=== PATIENT | male | born 1965 | race African-American/Black ===

== ENCOUNTER 2020-09-07 19:46 | Inpatient (IN) | payer SELFPAY ==
--- NOTE | 2020-09-07 20:36 | RAD ---
CHEST ONE VIEW: 09/07/20 HISTORY: Dyspnea. Heart size appears slightly enlarged. Mediastinal structures are unremarkable. The lungs are clear of infiltrates. No signs of failure. IMPRESSION: Mild cardiomegaly. POS: ANDREA
[2020-09-07 21:01] LABS: Hemoglobin 12.9 g/dL (14.0-18.0); Mean Corpuscular HGB CONC 31.5 g/dL (32.0-36.0); Mean Corpuscular Hemoglobin 29.9 pg (27.0-31.0); Mean Corpuscular Volume 94.9 fL (78.0-98.0); Platelet Count 201 thou/uL (130-400); RBC Distribution Width 14.6 % (11.5-14.5); White Blood Cell (WBC) Count 6.7 thou/uL (4.8-10.8)
[2020-09-07 21:03] LABS: ALT (SGPT) 28 U/L (8-55); AST (SGOT) 57 U/L (5-34); Albumin 3.5 g/dL (3.5-5.0); Alkaline Phosphatase 220 U/L (40-110); Anion Gap 18 mmol/L (10-20); BUN (Urea Nitrogen) 10 mg/dL (8.4-25.7); Bilirubin, Total 0.6 mg/dL (0.2-1.2); Calc. Creatinine Clearance 0 mL/min (70-130); Calcium 8.2 mg/dL (7.8-10.44); Carbon Dioxide 22 mmol/L (22-29); Chloride 107 mmol/L (98-107); Globulin 3.2 g/dL (2.4-3.5); Glucose 103 mg/dL (70-105); Potassium 3.5 mmol/L (3.5-5.1); Protein, Total 6.7 g/dL (6.0-8.3); Sodium 143 mmol/L (136-145)
[2020-09-07 21:26] LABS: CKMB 1.8 ng/mL (0-6.6)
[2020-09-07 21:35] LABS: Band 1 % (5-11); Eosinophils 1 % (0-10); Lymphocytes 30 % (21-51); MDiff Complete? YES; Monocytes 17 % (0-10); Neutrophil 49 % (42-75)
--- NOTE | 2020-09-07 21:58 | PDOC.BPN ---
- Brief Progress Note [id number] dictated
[2020-09-07] MEDS ORDERED: Enoxaparin Sodium 80 MG/0.8 ML SYRINGE ONE (22:45)
[2020-09-08 00:06] VITALS: BMI 26.6
[2020-09-08 00:07] LABS: Troponin I 0.224 ng/mL (< 0.028)
--- NOTE | 2020-09-08 00:46 | HP ---
CHIEF COMPLAINT: Leg swelling. HISTORY OF PRESENT ILLNESS: Mr. Fuentes is a 54-year-old male who is being transferred from [facility] after he presented with leg swelling. The patient has past medical history of hypertension, cigarette smoker. He states that he had an insect bite on the right inner thigh. He said he went to a doctor at [facility] who noticed swelling in his feet and sent him to the hospital to get checked out. He was found to have elevated BNP of 1386. He had elevated D-dimer of 3.81 and elevated troponin of 0.224. He denies any chest pain, but he describes that he gets winded with any minimal exertion and he gets orthopneic, and he noticed his right leg swollen, then his both legs became swollen. In the emergency room, on imaging studies, the patient was found to have bilateral effusions. Elevated BNP. The patient was given IV Lasix. Workup in our emergency room, the patient's leg swelling improved. Repeat troponin is 0.25. The patient still denies any chest pain. The patient was given 1 dose of 1 mg/kg of Lovenox. The patient's EKG showed LVH with T wave inversions in V4, V5, V6. The patient is being admitted to the hospital for further management. PAST MEDICAL HISTORY: Hypertension. PAST SURGICAL HISTORY: Colostomy after . SOCIAL HISTORY: He is an everyday smoker. He smokes half pack a day. He drinks about 5 drinks per day. FAMILY HISTORY: Noncontributory. HOME MEDICATIONS: See home medication reconciliation form for updated medications. ALLERGIES: ALLERGIC TO LISINOPRIL. REVIEW OF SYSTEMS: Review of 14 systems negative except what is mentioned in history of present illness. PHYSICAL EXAMINATION: GENERAL: The patient is awake, alert, orthopneic. VITAL SIGNS: Blood pressure 132/89, pulse is 110, respiratory rate is 22, temperature 98.1, oxygen saturation is 100%. HEAD AND NECK: Normocephalic, atraumatic. NECK: Supple. CHEST: Decreased air entry in both bases. HEART: S1, S2. Regular, tachycardic. ABDOMEN: Soft, nontender. Bowel sounds present. NEUROLOGIC: Awake, alert, oriented. Moving extremities. PSYCH: Unable to assess. EXTREMITIES: 3+ bilateral edema. LABORATORY DATA: WBC 6.7, hemoglobin 12.9, platelets 201. Troponin 0.25. BNP 1287. Sodium 143, potassium 3.5, BUN 10, creatinine 0.7. ASSESSMENT AND PLAN: 1. Acute congestive heart failure. 2. Elevated troponin/? [id number] elevation myocardial infarction. 3. Hypertension. 4. Cigarette smoker. PLAN: 1. Admit. 2. Telemetry monitoring. 3. Aspirin. 4. The patient was started on anticoagulation in the ED, reassess in a.m. 5. We will continue to trend troponins. 6. IV diuresis. 7. Monitor kidney function and urine output. 8. 2D echo. 9. Consult Cardiology in a.m. for evaluation and further recommendations. 10. DVT prophylaxis. The patient is on Lovenox. 11. Expected length of stay at least 1 midnight if patient is stable and cleared by Cardiology. Job ID: [id number]
[2020-09-08] MEDS: Acetaminophen 325 MG TAB PO PRN (04:36)
[2020-09-08 04:47] LABS: Anion Gap 19 mmol/L (10-20); BUN (Urea Nitrogen) 12 mg/dL (8.4-25.7); Calc. Creatinine Clearance 116 mL/min (70-130); Calcium 8.9 mg/dL (7.8-10.44); Carbon Dioxide 23 mmol/L (22-29); Chloride 105 mmol/L (98-107); Glucose 105 mg/dL (70-105); Potassium 3.5 mmol/L (3.5-5.1); Sodium 143 mmol/L (136-145)
[2020-09-08 04:48] LABS: Troponin I 0.209 ng/mL (< 0.028)
[2020-09-08 05:58] LABS: Band 2 % (5-11); Eosinophils 2 % (0-10); Hemoglobin 13.2 g/dL (14.0-18.0); Lymphocytes 38 % (21-51); MDiff Complete? YES; Mean Corpuscular HGB CONC 32.4 g/dL (32.0-36.0); Mean Corpuscular Hemoglobin 30.9 pg (27.0-31.0); Mean Corpuscular Volume 95.2 fL (78.0-98.0); Mean Platelet Volume 9.4 fL (7.4-10.4); Monocytes 16 % (0-10); Neutrophil 42 % (42-75); Platelet Count 189 thou/uL (130-400); RBC Distribution Width 14.6 % (11.5-14.5); Red Blood Cell (RBC) Count 4.28 mill/uL (4.70-6.10); White Blood Cell (WBC) Count 6.1 thou/uL (4.8-10.8)
[2020-09-08] MEDS ORDERED: Potassium Chloride 20 MEQ TAB PO SCH (06:00)
[2020-09-08] MEDS: Furosemide 40 MG/4 ML VIAL SLOW IVP SCH ×2 (06:36→15:00)
[2020-09-08] MEDS ORDERED: Magnesium Sulfate 4 GM in Sodium Chloride 0.9% 250 ML 250 ML IVPB SCH (07:30)
[2020-09-08] MEDS ORDERED: Aspirin 325 MG TAB PO SCH (09:00)
[2020-09-08] MEDS ORDERED: FLU VACC QS2020-21(6MOS UP)/PF 60 MCG/0.5 ML SYRINGE IM ONE (09:00)
[2020-09-08] MEDS: Enoxaparin Sodium 80 MG/0.8 ML SYRINGE SC SCH ×2 (11:26→20:59)
[2020-09-08] MEDS ORDERED: Spironolactone 25 MG TAB PO SCH (11:45)
[2020-09-08] MEDS ORDERED: Furosemide 40 MG/4 ML VIAL ONE (16:08)
--- NOTE | 2020-09-08 17:27 | PDOC.HOSPP ---
- Subjective Subjective: sob better. still swollen. d/w cardiology - Objective Vital Signs & Weight: Vital Signs (12 hours) Temp Pulse Resp BP BP Pulse Ox 09/08/20 16:15 108 H 16 139/80 100 09/08/20 12:19 97.4 F L 106 H 18 152/98 H 98 09/08/20 07:54 97.3 F L 106 H 18 131/97 H 99 Weight Weight 175 lb 6 oz I&O: 09/07/20 09/08/20 09/09/20 06:59 06:59 06:59 Intake Total 120 Output Total 600 Balance -480 Result Diagrams: 09/08/20 04:13 09/08/20 04:13 Radiology Reviewed by me: Yes EKG Reviewed by me: Yes Hospitalist ROS - Medication Medications: Active Medications Generic Name Dose Route Start Last Admin Trade Name Freq PRN Reason Stop Dose Admin Acetaminophen 650 mg 09/07/20 21:21 09/08/20 04:36 Acetaminophen 325 Mg Tab PO 650 mg Q4H PRN Administration Headache/Fever/Mild Pain (1-3) Enoxaparin Sodium 80 mg 09/08/20 09:00 09/08/20 11:26 Enoxaparin Sodium 80 Mg/0.8 Ml Syringe SC 80 mg 0900,2100 HUE Administration Furosemide 40 mg 09/08/20 06:00 09/08/20 06:36 Furosemide 40 Mg/4 Ml Vial SLOW IVP 40 mg 0600,1400 HUE Administration - Exam General Appearance: NAD Eye: PERRL ENT: normocephalic atraumatic Neck: supple Heart: RRR Respiratory: CTAB Gastrointestinal: soft, non-tender, non-distended Extremities: no cyanosis Skin: normal turgor Neurological: cranial nerve grossly intact Hosp A/P - Plan acute on chronic systolic HF with EF 15% --cont IV diuresis --follow renal function. Pt was placed on guideline directed therapy for HF by business intern. --will defer business intern for further ischemic workup --Nutrition consult for low salt diets. NSTEMI --cont med mgt, cardiology is following HTN --noncompliance with meds Medical noncompliance. Tobacco dep disorder
[2020-09-08] MEDS ORDERED: Sodium Chloride 0.9% 10 ML ONE (20:41)
[2020-09-09 05:20] LABS: Anion Gap 17 mmol/L (10-20); BUN (Urea Nitrogen) 14 mg/dL (8.4-25.7); Calc. Creatinine Clearance 125 mL/min (70-130); Calcium 8.3 mg/dL (7.8-10.44); Carbon Dioxide 24 mmol/L (22-29); Chloride 99 mmol/L (98-107); Glucose 102 mg/dL (70-105); Potassium 3.2 mmol/L (3.5-5.1); Sodium 137 mmol/L (136-145)
[2020-09-09 05:28] LABS: Troponin I 0.117 ng/mL (< 0.028)
[2020-09-09] MEDS ORDERED: Sodium Chloride 0.9% 10 ML ONE (05:34)
[2020-09-09] MEDS: Furosemide 40 MG/4 ML VIAL SLOW IVP SCH ×2 (06:25→14:09)
--- NOTE | 2020-09-09 07:19 | CON ---
DATE OF CONSULTATION: 09/08/2020 REASON FOR CONSULTATION: Congestive heart failure. HISTORY OF PRESENT ILLNESS: Mr. Fuentes is a 54-year-old man. He states he has been somewhat short of breath for a few weeks, but lately it has been noted that he has been having increasing swelling of his lower extremities. He feels short of breath when he tries to lie flat. He has not had any chest pain or pressure. He recently went to see his doctor because he had an insect bite on his right inner thigh. The doctor noticed he had swelling of his legs, sent him to the hospital, was found to have increased BNP and elevated troponin. He was found to have bilateral effusions. He was given intravenous Lasix and transferred here. No chest pain is mentioned. PAST MEDICAL HISTORY: Hypertension, but apparently not taking any medicines now. FAMILY HISTORY: Noncontributory. SOCIAL HISTORY: He said he does not have any family here. He is initially from the [facility]. He does continue to smoke half pack a day and drinks about 5 drinks per day according to the notes. ALLERGIES: ALLERGIC TO LISINOPRIL. HE ACTUALLY HAD THROAT SWELLING, SEVERE TROUBLE BREATHING, REQUIRED EPINEPHRINE TO RESOLVE, A TRUE LISINOPRIL ALLERGY. SEB INHIBITOR ALLERGY. REVIEW OF SYSTEMS: CONSTITUTIONAL: Continued to work. No generalized weakness. VISION: No changes. HEARING: No changes. PULMONARY: Positive for shortness of breath. CARDIAC: No chest pain. GASTROINTESTINAL: No nausea, vomiting, or diarrhea. SKIN: No rashes. NEUROLOGIC: No unilateral weakness or numbness. PSYCHIATRIC: No unusual depression or anxiety. PHYSICAL EXAMINATION: GENERAL: This is a pleasant gentleman. He is 54 years of age. Awake and alert, very cooperative. VITAL SIGNS: Blood pressure 139/97, pulse is 106, it is sinus tachycardia on the monitor. HEENT: Eyes, sclerae nonicteric. Mouth, mucous membranes moist. NECK: Supple. No lymphadenopathy. The neck veins are distended slightly, up at 45 degrees LUNGS: He does have some bibasilar rales. CARDIAC: Normal S1, normal S2, but he is tachycardic. I do hear an S3. There is also a soft apical systolic murmur. ABDOMEN: Soft and nontender. EXTREMITIES: Moderate to severe peripheral edema. The peripheral pulses are faint, even the femoral pulses I can palpate, but they are low amplitude. I do not feel pedal pulses. His feet are cool, but not cold. PERTINENT LABORATORY DATA: Potassium is 3.5, magnesium was low at 1.3. Troponin levels are flat at 0.2, essentially there is one 0.25, 0.209. BNP 2280. Echocardiogram, ejection fraction about 15%, severely dilated left ventricle, severely dilated left atrium, moderate mitral regurgitation, moderate to severe aortic insufficiency, moderate to severe tricuspid insufficiency, severe global hypokinesis. EKG, sinus rhythm with some diffuse T-wave changes. ASSESSMENT: 1. Probably severe cardiomyopathy, very advanced stage. 2. Unfortunately allergic to SEB inhibitor, true allergy with angioedema, requiring epinephrine. 3. Tachycardia and congestive heart failure, not compensated. 4. Hypomagnesemia. 5. Increased troponin level. I suspect this is probably chronic. This is a poor prognostic sign in patients with heart failure. Unfortunately, the patient's long-term prognosis is likely poor due to pump failure. He has very advanced systolic dysfunction. He cannot take SEB inhibitors. Unfortunately, the patient has no insurance; therefore, it would be very difficult to consider transplantation or other advanced heart failure treatment available in the medical centers. We will do the following; 1. Start spironolactone. 2. Continue diuretics. 3. Once volume status is better, add hydralazine and nitrates. 4. We will go ahead and draw another troponin level to make sure there is no peak and trough. This is probably chronically elevated finding. Unfortunately, long-term prognosis is poor in this unfortunate very pleasant gentleman. He has essentially not used any tobacco or alcohol. It is possible there is some alcohol related issue with a myopathy. If that is the case, he could get some improvement in left ventricular function with cessation of alcohol. Otherwise, the prognosis unfortunately appears very poor in this very pleasant unfortunate gentleman. We will follow with you during this hospitalization. Job ID: [id number]
[2020-09-09] MEDS ORDERED: Potassium Chloride 20 MEQ TAB PO SCH (08:00)
[2020-09-09] MEDS: Carvedilol 6.25 MG TAB PO SCH ×2 (09:17→14:09)
[2020-09-09] MEDS: Spironolactone 25 MG TAB PO SCH ×2 (09:18→16:59)
[2020-09-09] MEDS: Enoxaparin Sodium 80 MG/0.8 ML SYRINGE SC SCH (09:18)
[2020-09-09] MEDS: Aspirin Chewable 81 MG TAB PO SCH (09:18)
--- NOTE | 2020-09-09 13:28 | PRG ---
DATE OF SERVICE: 09/09/2020 SUBJECTIVE: Mr. Fuentes is feeling better. His breathing has really improved quite a bit since yesterday. OBJECTIVE: VITAL SIGNS: His blood pressure is 117/81, pulse most recently recorded at 1:10 this morning, we started on low-dose carvedilol. It sounds like the heart rate was more than 80 to 90 range now. LUNGS: Clear. CARDIAC: Not as tachycardic. ABDOMEN: Soft, nontender. EXTREMITIES: Only mild edema. ASSESSMENT: 1. Congestive heart failure, severe, acute on chronic with ejection fraction 10% to 15%, global hypokinesis, suspect cardiomyopathy. 2. Hypokalemia. PLAN: 1. Replete potassium. 2. Continue spironolactone. 3. Reduce enoxaparin. 4. Carvedilol has been added. 5. May need to stay over the weekend to have a heart cath on Sunday. Job ID: [id number]
--- NOTE | 2020-09-09 15:45 | PDOC.HOSPP ---
- Subjective Subjective: feeling much better, neg fluid balance. no chest pain - Objective Vital Signs & Weight: Vital Signs (12 hours) Temp Pulse Resp BP BP Pulse Ox 09/09/20 15:21 98.5 F 99 16 100/68 99 09/09/20 14:02 98.0 F 09/09/20 13:54 101/66 09/09/20 12:00 110 H 20 117/80 100 09/09/20 09:08 117/81 100 09/09/20 08:00 97.3 F L 110 H 20 112/78 09/09/20 04:00 99.1 F 106 H 21 H 140/98 H 98 Weight Weight 168 lb I&O: 09/08/20 09/09/20 09/10/20 06:59 06:59 06:59 Intake Total 120 1275 Output Total 600 3050 Balance -480 -1680 Result Diagrams: 09/08/20 04:13 09/09/20 04:14 Hospitalist ROS - Medication Medications: Active Medications Generic Name Dose Route Start Last Admin Trade Name Freq PRN Reason Stop Dose Admin Acetaminophen 650 mg 09/07/20 21:21 09/08/20 04:36 Acetaminophen 325 Mg Tab PO 650 mg Q4H PRN Administration Headache/Fever/Mild Pain (1-3) Aspirin 81 mg 09/09/20 09:00 09/09/20 09:18 Aspirin Chewable 81 Mg Tab PO 81 mg DAILY HUE Administration Carvedilol 6.25 mg 09/09/20 08:00 09/09/20 14:09 Carvedilol 6.25 Mg Tab PO Not Given BID-WM HUE Furosemide 40 mg 09/08/20 06:00 09/09/20 14:09 Furosemide 40 Mg/4 Ml Vial SLOW IVP Not Given 0600,1400 HUE Spironolactone 25 mg 09/09/20 08:00 09/09/20 09:18 Spironolactone 25 Mg Tab PO 25 mg BID-WM HUE Administration - Exam General Appearance: NAD Eye: PERRL ENT: normocephalic atraumatic Neck: supple Heart: RRR Respiratory: CTAB Gastrointestinal: soft Extremities: no cyanosis, 1+ LE edema Skin: normal turgor Neurological: cranial nerve grossly intact Psychiatric: normal affect Hosp A/P - Plan acute on chronic systolic HF with EF 15% --cont IV diuresis to maintain neg fluid balance. --follow renal function. Pt was placed on guideline directed therapy for HF by aluminum siding installer. --will defer aluminum siding installer for further ischemic workup - possible cath on Sunday --Nutrition consult for low salt diets. --check Lipid in AM, consider statin therapy. NSTEMI --cont med mgt, cardiology is following HTN --noncompliance with meds Medical noncompliance. --counseled Tobacco dependence disorder --counseled
[2020-09-09] MEDS ORDERED: Furosemide 20 MG/2 ML VIAL SLOW IVP SCH (16:00)
[2020-09-10 04:53] LABS: Hemoglobin A1c 5.3 % (4.0-6.0)
[2020-09-10 04:59] LABS: #Eosinphils 0.3 thou/uL (0.0-0.7); #Lymphocytes 2.7 thou/uL (1.20-3.40); #Monocytes 0.7 thou/uL (0.11-0.59); %Basophils 0.4 % (0.0-1.0); %Eosinophils 4.1 % (0.0-10.0); %Lymphocytes 40.5 % (21.0-51.0); %Monocytes 10.4 % (0.0-10.0); %Neutrophils 44.8 % (42.0-75.0); Hemoglobin 12.8 g/dL (14.0-18.0); Mean Corpuscular HGB CONC 32.9 g/dL (32.0-36.0); Mean Corpuscular Hemoglobin 31.4 pg (27.0-31.0); Mean Corpuscular Volume 95.4 fL (78.0-98.0); Mean Platelet Volume 9.4 fL (7.4-10.4); Platelet Count 181 thou/uL (130-400); RBC Distribution Width 14.4 % (11.5-14.5); Red Blood Cell (RBC) Count 4.08 mill/uL (4.70-6.10); White Blood Cell (WBC) Count 6.7 thou/uL (4.8-10.8)
[2020-09-10 05:15] LABS: Anion Gap 16 mmol/L (10-20); BUN (Urea Nitrogen) 20 mg/dL (8.4-25.7); Calc. Creatinine Clearance 108 mL/min (70-130); Calcium 8.4 mg/dL (7.8-10.44); Carbon Dioxide 27 mmol/L (22-29); Chloride 98 mmol/L (98-107); Cholesterol 180 mg/dl (< 200 Desired); Glucose 105 mg/dL (70-105); HDL Cholesterol 45 mg/dL (>60 Neg Risk); LDL Cholesterol, Calculated 115 mg/dL; Magnesium 1.6 mg/dL (1.6-2.6); Potassium 3.3 mmol/L (3.5-5.1); Sodium 138 mmol/L (136-145); Triglycerides 102 mg/dL (Less than 150)
[2020-09-10 05:18] LABS: Troponin I 0.061 ng/mL (< 0.028)
[2020-09-10] MEDS ORDERED: Potassium Chloride 20 MEQ TAB PO SCH (05:45)
[2020-09-10] MEDS: Furosemide 40 MG/4 ML VIAL SLOW IVP SCH (05:52)
[2020-09-10] MEDS ORDERED: Magnesium 2 GM/50 ML 2 GM in Premix Bag 1 BAG IVPB SCH (08:00)
[2020-09-10] MEDS ORDERED: Communication Order-Pharmacy FS SCH (10:15)
[2020-09-10] MEDS: Aspirin Chewable 81 MG TAB PO SCH (10:16)
[2020-09-10] MEDS: Spironolactone 25 MG TAB PO SCH ×2 (10:16→17:44)
[2020-09-10] MEDS: Enoxaparin Sodium 40 MG/0.4 ML SYRINGE SC SCH (10:16)
--- NOTE | 2020-09-10 10:37 | PRG ---
DATE OF SERVICE: 09/10/2020 SUBJECTIVE: Mr. Fuentes is really feeling much better. He is not short of breath. He is having no complaints. OBJECTIVE: VITAL SIGNS: Blood pressure is on the low side, 99/68, pulse 90. LUNGS: Clear. CARDIAC: Normal S1 and S2. ABDOMEN: Soft, nontender. EXTREMITIES: There is no edema. ASSESSMENT: Congestive heart failure, clinically improved with severely depressed left ventricular function, suspect he probably has a cardiomyopathy. PLAN: 1. Reduce furosemide. 2. Continue spironolactone. He was given extra potassium today. 3. Proceed to cardiac catheterization on Sunday. Explained risks, stroke, heart attack, iodine allergy, loss of blood supply to leg or kidney, stent thrombosis, stent restenosis. He understands and wishes to proceed. 4. Cannot take SEB inhibitors or ARB secondary to severe allergic reaction. 5. Try to obtain a LifeVest if possible. 6. The patient is unfunded, therefore, that may be a barrier, but we will ask the company to speak with him and see if it is feasible. Job ID: [id number]
--- NOTE | 2020-09-10 12:42 | PDOC.HOSPP ---
- Subjective Subjective: Examined at bedside. Patient stated she is feeling better. His electrolytes is currently being repleted. Swelling has gone down - Objective Vital Signs & Weight: Vital Signs (12 hours) Temp Pulse Resp BP Pulse Ox 09/10/20 08:00 97.8 F 94 18 104/71 97 09/10/20 04:00 97.4 F L 93 20 99/68 99 Weight Weight 167 lb 9 oz I&O: 09/09/20 09/10/20 09/11/20 06:59 06:59 06:59 Intake Total 1275 980 Output Total 3050 2150 Balance -1775 -1170 Result Diagrams: 09/10/20 04:03 09/10/20 04:03 Radiology Reviewed by me: Yes EKG Reviewed by me: Yes Hospitalist ROS - Medication Medications: Active Medications Generic Name Dose Route Start Last Admin Trade Name Freq PRN Reason Stop Dose Admin Acetaminophen 650 mg 09/07/20 21:21 09/08/20 04:36 Acetaminophen 325 Mg Tab PO 650 mg Q4H PRN Administration Headache/Fever/Mild Pain (1-3) Aspirin 81 mg 09/09/20 09:00 09/10/20 10:16 Aspirin Chewable 81 Mg Tab PO 81 mg DAILY HUE Administration Enoxaparin Sodium 40 mg 09/10/20 09:00 09/10/20 10:16 Enoxaparin Sodium 40 Mg/0.4 Ml Syringe SC 09/12/20 21:01 40 mg 0900 HUE Administration Spironolactone 25 mg 09/09/20 08:00 09/10/20 10:16 Spironolactone 25 Mg Tab PO 25 mg BID-WM HUE Administration - Exam General Appearance: NAD Eye: PERRL Neck: supple Heart: RRR Respiratory: CTAB Gastrointestinal: soft, non-tender Extremities: no cyanosis Skin: normal turgor Hosp A/P - Plan acute on chronic systolic HF with EF 15% --cont IV diuresis, dose adjusted by cardiology, to maintain neg fluid balance. --follow renal function. Pt was placed on guideline directed therapy for HF by field crop technical officer. --will defer field crop technical officer for further ischemic workup - cath on Sunday --Nutrition consult for low salt diets. --add statin therapy. Probably needs lifevest at discharge given severe depressed EF NSTEMI --cont med mgt, cardiology is following HTN --noncompliance with meds Medical noncompliance. --counseled Tobacco dependence disorder --counseled
[2020-09-10] MEDS: Furosemide 20 MG TAB PO SCH (15:55)
[2020-09-10] MEDS: Atorvastatin Calcium 40 MG TAB PO SCH (22:11)
[2020-09-11 04:52] LABS: Anion Gap 15 mmol/L (10-20); BUN (Urea Nitrogen) 23 mg/dL (8.4-25.7); Calc. Creatinine Clearance 108 mL/min (70-130); Calcium 8.1 mg/dL (7.8-10.44); Carbon Dioxide 24 mmol/L (22-29); Chloride 99 mmol/L (98-107); Glucose 110 mg/dL (70-105); Potassium 3.6 mmol/L (3.5-5.1); Sodium 134 mmol/L (136-145)
[2020-09-11] MEDS: Furosemide 20 MG TAB PO SCH ×2 (09:40→15:02)
[2020-09-11] MEDS: Enoxaparin Sodium 40 MG/0.4 ML SYRINGE SC SCH (09:40)
[2020-09-11] MEDS: Aspirin Chewable 81 MG TAB PO SCH (09:40)
[2020-09-11] MEDS: Spironolactone 25 MG TAB PO SCH ×2 (09:40→17:59)
--- NOTE | 2020-09-11 12:29 | PDOC.CPN ---
- Subjective Date: 09/11/20 Time: 10:00 Interval history: No overnight events. Patient sitting up in bed, denies chest pain, shortness of breath, has already walked with therapy with no cardiac complaints. States BLE edema doing better than yesterday. - Review of Systems General: denies: fever/chills, weight/appetite/sleep changes, night sweats, fatigue Respiratory: denies: cough, congestion, shortness of breath, exercise intol erance Gastrointestinal: denies: nausea, vomiting, diarrhea, constipation, abd pain, GI bleeding Musculoskeletal: reports: swelling (c/o BLE edema) Neurological: denies: numbness, syncope, seizure, weakness - Objective Allergies/Adverse Reactions: Allergies Allergy/AdvReac Type Severity Reaction Status Date / Time lisinopril Allergy Severe Anaphylaxis Verified 09/08/20 00:06 Visit Medications: Current Medications Acetaminophen (Acetaminophen 325 Mg Tab) 650 mg PO Q4H PRN PRN Reason: Headache/Fever/Mild Pain (1-3) Last Admin: 09/08/20 04:36 Dose: 650 mg Documented by: Aspirin (Aspirin Chewable 81 Mg Tab) 81 mg PO DAILY [facility] Last Admin: 09/11/20 09:40 Dose: 81 mg Documented by: Atorvastatin Calcium (Atorvastatin Calcium 40 Mg Tab) 40 mg PO HS [facility] Last Admin: 09/10/20 22:11 Dose: 40 mg Documented by: Enoxaparin Sodium (Enoxaparin Sodium 40 Mg/0.4 Ml Syringe) 40 mg SC 0900 [facility] Stop: 09/12/20 21:01 Last Admin: 09/11/20 09:40 Dose: 40 mg Documented by: Furosemide (Furosemide 20 Mg Tab) 20 mg PO 0900,1400 [facility] Last Admin: 09/11/20 09:40 Dose: 20 mg Documented by: Sodium Chloride (Normal Saline 0.9%) 1,000 mls @ 100 mls/hr IV .Q10H [facility] Miscellaneous Information (Communication Order-Pharmacy ) 0 each FS ONE [facility] Stop: 09/13/20 12:00 Spironolactone (Spironolactone 25 Mg Tab) 25 mg PO BID-WM [facility] Last Admin: 09/11/20 09:40 Dose: 25 mg Documented by: Vital Signs & Weight: Vital Signs Temp Pulse Resp BP BP Pulse Ox 09/11/20 11:33 98.3 F 96 16 104/70 96 09/11/20 07:25 98.1 F 97 16 104/66 96 09/11/20 05:53 93 105/75 09/11/20 04:00 97.4 F L 82 18 101/73 92 L Weight 166 lb 14.4 oz - Quality Measures Condition: Heart Failure CV meds: Beta Raul: No (Hypotension), SEB/ARB: No (Allergy ), Statin: Yes - Physical Exam General: alert & oriented x3, appears well, no apparent distress HEENT: mucus membranes moist Neck: supple neck, midline trachea, no JVD/HJR, no masses Cardiac: regular rate and rhythm, no murmur Lungs: clear to auscultation, normal breath sounds, no wheeze, rales, rhonchi Neuro: grossly intact Abdomen: active bowel sounds, soft, non-tender Extremities: no cyanosis, 1+ LE edema (edema to right LE) Skin: clear Musculoskeletal: normal range of motion, no pain - Labs Result Diagrams: 09/10/20 04:03 09/11/20 04:12 Troponin/CKMB CK-MB (CK-2) 1.8 ng/mL (0-6.6) 09/07/20 20:30 Troponin I 0.061 ng/mL (< 0.028) H 09/10/20 04:03 - EKG Interpretation EKG: sinus rhythm - Assessment/Plan Assessment/Plan: 1.Congestive heart failure: his echocardiogram showed an EF of 15%, will have LHC with Dr. Oshea on Sunday. Awaiting Life Vest. Blood pressure remains in the 90's-100's, we will hold his beta raul until BP stabilizes. We Will continue diuretics. Patient tolerating well. Pt. seen and eval. by me. I agree with the A/P by the ENGINEERING MGR. We have discussed the pt and the plan. giuseppe
--- NOTE | 2020-09-11 13:46 | PDOC.HOSPP ---
- Subjective Encounter Date: 09/11/20 Encounter Time: 09:10 Subjective: Patient seen this morning. Sitting in the bed. He still has ongoing lower extremity edema. On the right lateral thigh area he has a significant induration. He used to have pain but now is more of irritation. And no sensory impairment in the area. No skin changes. Patient is from [facility]. But he is originally from [facility]. He is familiar with the wasp spider and centipedes bite. He has not noticed any insects bites in the area. 4 weeks ago started with the pain now mostly induration and skin irritations. - Objective Vital Signs & Weight: Vital Signs (12 hours) Temp Pulse Pulse Pulse Resp BP BP 09/11/20 12:50 105 H 103 H 117/83 114/78 09/11/20 11:33 98.3 F 96 16 09/11/20 07:25 98.1 F 97 16 09/11/20 05:53 93 09/11/20 04:00 97.4 F L 82 18 BP BP Pulse Ox Pulse Ox Pulse Ox 09/11/20 12:50 100 97 09/11/20 11:33 104/70 96 09/11/20 07:25 104/66 96 09/11/20 05:53 105/75 09/11/20 04:00 101/73 92 L Weight Weight 166 lb 14.4 oz I&O: 09/10/20 09/11/20 09/12/20 06:59 06:59 06:59 Intake Total 980 340 Output Total 2150 450 Balance -1170 -110 Result Diagrams: 09/10/20 04:03 09/11/20 04:12 Hospitalist ROS - Medication Medications: Active Medications Generic Name Dose Route Start Last Admin Trade Name Freq PRN Reason Stop Dose Admin Acetaminophen 650 mg 09/07/20 21:21 09/08/20 04:36 Acetaminophen 325 Mg Tab PO 650 mg Q4H PRN Administration Headache/Fever/Mild Pain (1-3) Aspirin 81 mg 09/09/20 09:00 09/11/20 09:40 Aspirin Chewable 81 Mg Tab PO 81 mg DAILY HUE Administration Atorvastatin Calcium 40 mg 09/10/20 21:00 09/10/20 22:11 Atorvastatin Calcium 40 Mg Tab PO 40 mg HS HUE Administration Enoxaparin Sodium 40 mg 09/10/20 09:00 09/11/20 09:40 Enoxaparin Sodium 40 Mg/0.4 Ml Syringe SC 09/12/20 21:01 40 mg 0900 HUE Administration Furosemide 20 mg 09/10/20 14:00 09/11/20 09:40 Furosemide 20 Mg Tab PO 20 mg 0900,1400 HUE Administration Spironolactone 25 mg 09/09/20 08:00 09/11/20 09:40 Spironolactone 25 Mg Tab PO 25 mg BID-WM HUE Administration - Exam General Appearance: NAD, awake alert Eye: PERRL ENT: normocephalic atraumatic Neck: supple Heart: RRR Respiratory: CTAB, normal chest expansion Gastrointestinal: soft, normal bowel sounds Extremities: 2+ LE edema Neurological: no focal deficits Musculoskeletal: generalized weakness Psychiatric: A&O x 3 Hosp A/P - Plan acute on chronic systolic HF with EF 15%, patient has no history of MO. 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 --cont IV diuresis, dose adjusted by cardiology, to maintain neg fluid balance. -- cath on Sunday --Nutrition consult for low salt diets. --added statin therapy. Right extremity edema secondary to CHF -He is on Lasix p.o. currently twice a day NSTEMI --c type II metabolic mismatch demand ischemia secondary to CHF exacerbation. Hyperlipidemia with LDL of 115 and is on statin HTN --noncompliance with meds Medical noncompliance. Ongoing alcohol and tobacco abuse Patient drinks daily. And smokes less than a pack daily for "" lifetime" --counseled Right lateral thigh area induration. -He used to have pain but now is more of irritation. And no sensory impairment in the area. -No skin changes. Patient is from [facility]. But he is originally from [facility]. He is familiar with the wasp spider and centipedes bite. -He has not noticed any insects bites in the area. 4 weeks ago started with the pain now mostly induration and skin irritations. He is afebrile no elevated white count;; unlikely at this point any infectious source. However given the significant induration we will get CK level as well as ultrasound.
--- NOTE | 2020-09-11 15:01 | ULT ---
EXAM: Right lower extremity venous Doppler US HISTORY: Right lower extremity edema and pain FINDINGS: Grayscale, color-flow, Doppler evaluation, spectral analysis of the right lower extremity venous stru ctures is performed with 2-D imaging. The right common femoral, superficial femoral, popliteal, posterior tibial, proximal greater saphenous and profunda femoral veins are imaged. There is normal luminal compressibility, flow, and augmentation the visualized deep venous structures of the right lower extremity. IMPRESSION: No evidence of a deep vein thrombosis in the right lower extremity.
--- NOTE | 2020-09-11 16:07 | ULT ---
ULTRASOUND OF THE SOFT TISSUES OF THE RIGHT MEDIAL THIGH: 09/11/20 HISTORY: Induration of the right medial thigh. FINDINGS/IMPRESSION: Sonographic evaluation within the region of concern in the right medial thigh demonstrates no fluid c ollection to suggest abscess formation. Soft tissue edema is seen. POS: OFF
[2020-09-11] MEDS: Atorvastatin Calcium 40 MG TAB PO SCH (20:16)
[2020-09-12 04:49] LABS: Anion Gap 16 mmol/L (10-20); BUN (Urea Nitrogen) 21 mg/dL (8.4-25.7); CK (CPK) 62 U/L (30-200); Calc. Creatinine Clearance 112 mL/min (70-130); Calcium 8.7 mg/dL (7.8-10.44); Carbon Dioxide 23 mmol/L (22-29); Chloride 101 mmol/L (98-107); Glucose 107 mg/dL (70-105); Potassium 3.7 mmol/L (3.5-5.1); Sodium 136 mmol/L (136-145)
[2020-09-12] MEDS: Furosemide 20 MG TAB PO SCH ×2 (09:32→14:55)
[2020-09-12] MEDS: Enoxaparin Sodium 40 MG/0.4 ML SYRINGE SC SCH (09:32)
[2020-09-12] MEDS: Aspirin Chewable 81 MG TAB PO SCH (09:33)
[2020-09-12] MEDS: Spironolactone 25 MG TAB PO SCH ×2 (09:33→17:29)
--- NOTE | 2020-09-12 13:59 | PDOC.HOSPP ---
- Subjective Encounter Date: 09/12/20 Encounter Time: 11:00 Subjective: Patient resting. I explained to his ultrasound findings on his left thigh which shows mainly soft tissue edema and no DVT. Encouraged him to ambulate more. N.p.o. tonight for cath in the morning. - Objective Vital Signs & Weight: Vital Signs (12 hours) Temp Pulse Pulse Pulse Resp BP BP 09/12/20 12:40 97.7 F 98 16 09/12/20 10:59 98 101 H 109/67 108/69 09/12/20 07:10 09/12/20 07:08 97.8 F 95 16 09/12/20 04:00 97.3 F L 94 18 BP Pulse Ox Pulse Ox Pulse Ox 09/12/20 12:40 111/76 95 09/12/20 10:59 98 94 L 09/12/20 07:10 95 09/12/20 07:08 110/75 94 L 09/12/20 04:00 103/76 99 Weight Weight 171 lb 2 oz I&O: 09/11/20 09/12/20 09/13/20 06:59 06:59 06:59 Intake Total 340 990 Output Total 450 980 Balance -110 10 Result Diagrams: 09/10/20 04:03 09/12/20 04:00 Hospitalist ROS - Medication Medications: Active Medications Generic Name Dose Route Start Last Admin Trade Name Freq PRN Reason Stop Dose Admin Acetaminophen 650 mg 09/07/20 21:21 09/08/20 04:36 Acetaminophen 325 Mg Tab PO 650 mg Q4H PRN Administration Headache/Fever/Mild Pain (1-3) Aspirin 81 mg 09/09/20 09:00 09/12/20 09:33 Aspirin Chewable 81 Mg Tab PO 81 mg DAILY HUE Administration Atorvastatin Calcium 40 mg 09/10/20 21:00 09/11/20 20:16 Atorvastatin Calcium 40 Mg Tab PO 40 mg HS HUE Administration Enoxaparin Sodium 40 mg 09/10/20 09:00 09/12/20 09:32 Enoxaparin Sodium 40 Mg/0.4 Ml Syringe SC 09/12/20 21:01 40 mg 0900 HUE Administration Furosemide 20 mg 09/10/20 14:00 09/12/20 09:32 Furosemide 20 Mg Tab PO 20 mg 0900,1400 HUE Administration Spironolactone 25 mg 09/09/20 08:00 09/12/20 09:33 Spironolactone 25 Mg Tab PO 25 mg BID-WM HUE Administration - Exam General Appearance: NAD, awake alert Eye: PERRL ENT: normocephalic atraumatic Neck: supple Heart: RRR, normal peripheral pulses Respiratory: CTAB, normal chest expansion Gastrointestinal: soft, normal bowel sounds Extremities: 2+ LE edema Skin: normal turgor Neurological: cranial nerve grossly intact, no focal deficits Psychiatric: normal affect, normal behavior, A&O x 3 Hosp A/P - Plan acute on chronic systolic HF with EF 15%, patient has no history of [place]. 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 --cont IV diuresis, dose adjusted by cardiology, to maintain neg fluid balance. -- cath on Sunday --Nutrition consult for low salt diets. --added statin therapy. Right extremity edema secondary to CHF -He is on Lasix p.o. currently twice a day NSTEMI --c type II metabolic mismatch demand ischemia secondary to CHF exacerbation. Hyperlipidemia with LDL of 115 and is on statin HTN --noncompliance with meds Medical noncompliance. Ongoing alcohol and tobacco abuse Patient drinks daily. And smokes less than a pack daily for "" lifetime" --counseled Right lateral thigh area induration. -He used to have pain but now is more of irritation. And no sensory impairment in the area. -No skin changes. Patient is from [facility]. But he is originally from [facility]. He is familiar with the wasp spider and centipedes bite. -He has not noticed any insects bites in the area. 4 weeks ago started with the pain now mostly induration and skin irritations. He is afebrile no elevated white count;; unlikely at this point any infectious source. -Ultrasound negative for DVT and it shows soft tissue edema. Mild hypothyroidism -Started on low-dose supplement, given his cardiomyopathy.
--- NOTE | 2020-09-12 16:29 | PDOC.CPN ---
- Subjective Date: 09/12/20 Time: 11:15 Interval history: No overnight events. Patient's rhythm remains in sinus rhythm, rate has been 90's-110's. He didn't sleep well but denies any chest pain, shortness of breath. - Review of Systems General: denies: fever/chills, weight/appetite/sleep changes, night sweats, fatigue Respiratory: denies: cough, congestion, shortness of breath, exercise intolerance Cardiovascular: denies: chest pain, palpitation, edema, paroxysmal nocturnal dyspnea, orthopnea Gastrointestinal: denies: nausea, vomiting, diarrhea, constipation, abd pain, GI bleeding Musculoskeletal: denies: pain, tenderness, stiffness, swelling, arth ritis/arthralgias Neurological: denies: numbness, syncope, seizure, weakness - Objective Allergies/Adverse Reactions: Allergies Allergy/AdvReac Type Severity Reaction Status Date / Time lisinopril Allergy Severe Anaphylaxis Verified 09/08/20 00:06 Visit Medications: Current Medications Acetaminophen (Acetaminophen 325 Mg Tab) 650 mg PO Q4H PRN PRN Reason: Headache/Fever/Mild Pain (1-3) Last Admin: 09/08/20 04:36 Dose: 650 mg Documented by: Aspirin (Aspirin Chewable 81 Mg Tab) 81 mg PO DAILY [facility] Last Admin: 09/12/20 09:33 Dose: 81 mg Documented by: Atorvastatin Calcium (Atorvastatin Calcium 40 Mg Tab) 40 mg PO HS [facility] Last Admin: 09/11/20 20:16 Dose: 40 mg Documented by: Enoxaparin Sodium (Enoxaparin Sodium 40 Mg/0.4 Ml Syringe) 40 mg SC 0900 [facility]1983 Stop: 09/12/20 21:01 Last Admin: 09/12/20 09:32 Dose: 40 mg Documented by: Furosemide (Furosemide 20 Mg Tab) 20 mg PO 0900,1400 [facility] Last Admin: 09/12/20 14:55 Dose: 20 mg Documented by: Sodium Chloride (Normal Saline 0.9%) 1,000 mls @ 100 mls/hr IV .Q10H [facility], [facility] Levothyroxine Sodium (Levothyroxine Sodium 50 Mcg Tab) 50 mcg PO 0600 [facility] Miscellaneous Information (Communication Order-Pharmacy ) 0 each FS ONE [facility], [facility]1983 Stop: 09/13/20 12:00 Spironolactone (Spironolactone 25 Mg Tab) 25 mg PO BID-WM [facility] Last Admin: 09/12/20 09:33 Dose: 25 mg Documented by: Vital Signs & Weight: Vital Signs Temp Pulse Pulse Pulse Resp BP BP 09/12/20 15:26 98 F 98 18 09/12/20 12:40 97.7 F 98 16 09/12/20 10:59 98 101 H 109/67 108/69 09/12/20 07:10 09/12/20 07:08 97.8 F 95 16 BP BP Pulse Ox Pulse Ox Pulse Ox 09/12/20 15:26 113/82 99 09/12/20 12:40 111/76 95 09/12/20 10:59 98 94 L 09/12/20 07:10 95 09/12/20 07:08 110/75 94 L Weight 171 lb 2 oz - Quality Measures Condition: Heart Failure CV meds: Beta Raul: No (Hypotension), SEB/ARB: No (Allergy ), Statin: Yes - Physical Exam General: alert & oriented x3, appears well, no apparent distress HEENT: normocephaly Neck: midline trachea, no JVD/HJR, no bruit Cardiac: regular rate and rhythm, no murmur Lungs: clear to auscultation, normal breath sounds, normal exam, no wheeze, rales, rhonchi Neuro: grossly intact, motor function intact, sensory function intact Abdomen: active bowel sounds, soft, non-tender, no masses Extremities: 1+ LE edema (1+ edema to right LE, slight edema to LLE) Skin: clear Musculoskeletal: normal range of motion - Labs Result Diagrams: 09/10/20 04:03 09/12/20 04:00 Troponin/CKMB CK-MB (CK-2) 1.8 ng/mL (0-6.6) 09/07/20 20:30 Troponin I 0.061 ng/mL (< 0.028) H 09/10/20 04:03 - EKG Interpretation EKG Method: Telemetry EKG: sinus rhythm - Assessment/Plan Assessment/Plan: 1.Congestive heart failure: his echocardiogram showed an EF of 15%, will have LHC with Dr. Oshea tomorrow. Awaiting Life Vest. Patient did diureis a small amount of fluid yesterday. His heart rate has remained in the 90's-110's, will start low dose beta raul for HR control. We Will continue diuretics. Patient tolerating well. Pt. seen and eval. by me. I agree with the A/P by the SH[employer]TLE FINAL INSPECTOR. Chest clear. RRR. No edema. gjm
[2020-09-12] MEDS: Atorvastatin Calcium 40 MG TAB PO SCH (20:24)
[2020-09-12] MEDS: Acetaminophen 325 MG TAB PO PRN (20:26)
[2020-09-13 02:11] LABS: SARS-CoV-2 MS2 Positive; SARS-CoV-2 N Gene Negative; SARS-CoV-2 S Gene Negative; SARS-CoV-2 by NAA Not Detected (NotDetected); SARS-CoV-2 orf1ab Negative
[2020-09-13 05:08] LABS: Anion Gap 17 mmol/L (10-20); BUN (Urea Nitrogen) 20 mg/dL (8.4-25.7); Calc. Creatinine Clearance 115 mL/min (70-130); Carbon Dioxide 23 mmol/L (22-29); Chloride 101 mmol/L (98-107); Glucose 96 mg/dL (70-105); Potassium 3.6 mmol/L (3.5-5.1); Sodium 137 mmol/L (136-145)
[2020-09-13] MEDS: Aspirin Chewable 81 MG TAB PO SCH (05:56)
[2020-09-13] MEDS: Spironolactone 25 MG TAB PO SCH ×2 (05:56→17:28)
[2020-09-13] MEDS: Levothyroxine Sodium 50 MCG TAB PO SCH (05:56)
[2020-09-13] MEDS: Furosemide 20 MG TAB PO SCH (05:57)
[2020-09-13] MEDS ORDERED: Sodium Chloride 0.9% 1,000 ML IV SCH (07:00)
[2020-09-13] MEDS ORDERED: Fentanyl 100 MCG/2 ML VIAL ONE (09:05)
[2020-09-13] MEDS ORDERED: Midazolam HCl 2 mg/2 ml Vial ONE (09:06)
[2020-09-13] MEDS ORDERED: Iopamidol 370 76% 100 ML VIAL ONE (09:19)
[2020-09-13] MEDS ORDERED: Heparin 10,000 UNITS/ 10 ML VIAL ONE (09:45)
[2020-09-13] MEDS ORDERED: Protamine Sulfate 50 MG/5 ML VIAL ONE (10:46)
[2020-09-13] MEDS ORDERED: Sodium Chloride 0.9% 200 ML IV PRN (10:48)
[2020-09-13] MEDS ORDERED: Acetaminophen/Codeine 30-300mg Tablet PO PRN ×2 (10:48)
[2020-09-13] MEDS ORDERED: Nitroglycerin 0.4 MG TAB (25 Tab Bottle) SL PRN (10:48)
--- NOTE | 2020-09-13 15:39 | PDOC.HOSPP ---
- Subjective Encounter Date: 09/13/20 Encounter Time: 14:50 Subjective: And returned from [facility]. Report pending. He resumed his diet. - Objective Vital Signs & Weight: Vital Signs (12 hours) Temp Pulse Resp BP BP Pulse Ox 09/13/20 12:00 86 17 119/88 99 09/13/20 07:19 97 09/13/20 07:13 98.6 F 100 16 114/84 97 Weight Weight 169 lb 12.8 oz I&O: 09/12/20 09/13/20 09/14/20 06:59 06:59 06:59 Intake Total 990 1270 Output Total 980 1700 Balance 10 -430 Result Diagrams: 09/10/20 04:03 09/13/20 04:09 Hospitalist ROS - Medication Medications: Active Medications Generic Name Dose Route Start Last Admin Trade Name Freq PRN Reason Stop Dose Admin Acetaminophen 650 mg 09/07/20 21:21 09/12/20 20:26 Acetaminophen 325 Mg Tab PO 650 mg Q4H PRN Administration Headache/Fever/Mild Pain (1-3) Aspirin 81 mg 09/09/20 09:00 09/13/20 05:56 Aspirin Chewable 81 Mg Tab PO 81 mg DAILY HUE Administration Atorvastatin Calcium 40 mg 09/10/20 21:00 09/12/20 20:24 Atorvastatin Calcium 40 Mg Tab PO 40 mg HS HUE Administration Levothyroxine Sodium 50 mcg 09/13/20 06:00 09/13/20 05:56 Levothyroxine Sodium 50 Mcg Tab PO 50 mcg 0600 HUE Administration Metoprolol Succinate 12.5 mg 09/13/20 09:00 09/13/20 05:56 Metoprolol Succinate Xl 25 Mg Tab PO 12.5 mg DAILY HUE Administration Spironolactone 25 mg 09/09/20 08:00 09/13/20 05:56 Spironolactone 25 Mg Tab PO 25 mg BID-WM HUE Administration - Exam General Appearance: NAD, awake alert Eye: PERRL ENT: normocephalic atraumatic Neck: supple Heart: RRR, normal peripheral pulses Respiratory: CTAB, normal chest expansion Gastrointestinal: soft, normal bowel sounds Neurological: cranial nerve grossly intact, no focal deficits Psychiatric: A&O x 3 Hosp A/P - Plan acute on chronic systolic HF with EF 15%, patient has no history of [place]. 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 --cont IV diuresis, dose adjusted by cardiology, to maintain neg fluid balance. -- cath on Sunday --Nutrition consult for low salt diets. --added statin therapy. Right extremity edema secondary to CHF -He is on Lasix p.o. currently twice a day NSTEMI --c type II metabolic mismatch demand ischemia secondary to CHF exacerbation. Hyperlipidemia with LDL of 115 and is on statin HTN --noncompliance with meds Medical noncompliance. Ongoing alcohol and tobacco abuse Patient drinks daily. And smokes less than a pack daily for "" lifetime" --counseled Right lateral thigh area induration. -He used to have pain but now is more of irritation. And no sensory impairment in the area. -No skin changes. Patient is from [facility]. But he is originally from [facility]. He is familiar with the wasp spider and centipedes bite. -He has not noticed any insects bites in the area. 4 weeks ago started with the pain now mostly induration and skin irritations. He is afebrile no elevated white count;; unlikely at this point any infectious source. -Ultrasound negative for DVT and it shows soft tissue edema. Mild hypothyroidism -Started on low-dose supplement, given his cardiomyopathy. Cath done today. Pending report. Continue with Toprol and spironolactone for now.
[2020-09-13] MEDS ORDERED: Clopidogrel Bisulfate 300 MG TAB PO SCH (18:00)
[2020-09-13] MEDS: Atorvastatin Calcium 40 MG TAB PO SCH (20:20)
[2020-09-14 05:17] LABS: Anion Gap 14 mmol/L (10-20); BUN (Urea Nitrogen) 13 mg/dL (8.4-25.7); Calc. Creatinine Clearance 128 mL/min (70-130); Calcium 8.8 mg/dL (7.8-10.44); Carbon Dioxide 23 mmol/L (22-29); Chloride 100 mmol/L (98-107); Glucose 106 mg/dL (70-105); Potassium 3.3 mmol/L (3.5-5.1); Sodium 134 mmol/L (136-145)
[2020-09-14] MEDS: Levothyroxine Sodium 50 MCG TAB PO SCH (06:24)
[2020-09-14] MEDS: Aspirin Chewable 81 MG TAB PO SCH (08:12)
[2020-09-14] MEDS: Spironolactone 25 MG TAB PO SCH (08:12)
[2020-09-14] MEDS ORDERED: Clopidogrel Bisulfate 75 MG TAB PO SCH (09:00)
[2020-09-14] MEDS ORDERED: Furosemide 20 MG TAB PO SCH (09:00)
[2020-09-14 12:09] VITALS: BP 107/73; TEMP 98.2
[2020-09-14] MEDS ORDERED: Potassium Chloride 20 MEQ TAB PO SCH (12:15)
--- NOTE | 2020-09-14 12:42 | PRG ---
DATE OF SERVICE: 09/14/2020 SUBJECTIVE: Mr. Fuentes feels well. He wants to go home. His groin site looks fine. He has no chest pain or pressure. He is not short of breath. OBJECTIVE: VITAL SIGNS: Blood pressure 107/73, pulse 75. EXTREMITIES: The right groin is not tender. There is no swelling in the right leg. It is warm and dry. CARDIAC: The patient did have one episode of nonsustained ventricular tachycardia, 7 beats. ASSESSMENT: 1. Severe cardiomyopathy with markedly depressed left ventricular function. Echocardiogram revealed ejection fraction of 15%. 2. Coronary artery disease, although this does not appear to be the etiology of the cardiomyopathy. 3. Peripheral vascular disease, severe with a severe iliac stenosis with successful stent implantation done by Dr. Clement yesterday on an urgent basis. 4. Intolerance to xvovpjxnmys-sbmagfojwz-uoxknv inhibitors with angioedema, life-threatening allergic reaction. PLAN: 1. He is on metoprolol succinate 25 mg a day, try to increase to 50 mg a day once tolerated. 2. Spironolactone 25 mg twice a day. 3. Lasix 20 mg twice a day. 4. Potassium 10 mEq a day. 5. Plavix 75 mg a day. 6. Aspirin 81 mg a day. 7. Atorvastatin 40 mg a day. 8. Basic metabolic panel in a week. 9. See us in the office in 3 weeks. 10. The patient is at risk of life-threatening arrhythmias. We had a long discussion about the LifeVest. He is admitting contact with the company. He said the paperwork is in process. He does not wish to wait any longer here in the hospital to pursue this. He says he will pursue this as an outpatient. He understands there is a risk of sudden cardiac with this degree of left ventricular dysfunction. If the ejection fraction remains under 35% at 3 months, then the implantable defibrillator could be considered. Job ID: [id number]
--- NOTE | 2020-09-14 14:45 | PDOC.DS.DS ---
Provider - Provider Date of Admission: 09/07/20 21:37 Admitting Provider: Jeff Cronin MD Primary Care Physician: NO PCP PROVIDER Course - Hospital Course Hospital Course: 54-year-old male presented with acute on chronic systolic HF with EF 15%, patient has no history of [place]. 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 --s/p IV diuresis -- s/p cath --- Right extremity edema secondary to CHF -He is on Lasix p.o. currently twice a day NSTEMI --c type II metabolic mismatch demand ischemia secondary to CHF exacerbation. Hyperlipidemia with LDL of 115 and is on statin HTN --noncompliance with meds Medical noncompliance. Ongoing alcohol and tobacco abuse Patient drinks daily. And smokes less than a pack daily for "" lifetime" --counseled Right lateral thigh area induration. -He used to have pain but now is more of irritation. And no sensory impairment in the area. -No skin changes. Patient is from [facility]. But he is originally from [facility]. He is familiar with the wasp spider and centipedes bite. -He has not noticed any insects bites in the area. 4 weeks ago started with the pain now mostly induration and skin irritations. He is afebrile no elevated white count;; unlikely at this point any infectious source. -Ultrasound negative for DVT and it shows soft tissue edema. Mild hypothyroidism -Started on low-dose supplement, given his cardiomyopathy. Primar care physician in [address] Oshea in 2 to 3 weeks for reevaluation for cardiac LifeVest. It appears that topic has been approached and patient is not willing as he has no insurance at this point. Patient cannot be discharged with SEB inhibitor because he has severe allergic reaction to SEB inhibitors in the past with angioedema and severe dyspnea. Resuscitation Status: 09/07/20 21:21 Resuscitation Status Routine Resuscitation Status: FULL: Full Resuscitation - Labs Lab Results: 09/10/20 04:03 09/14/20 04:21 Abnormal Lab Results - Last 48 hrs 09/14/20 04:21: Sodium 134 L, Potassium 3.3 L - Physical Exam Vitals: Vital Signs (12 hours) Temp Pulse Resp BP BP Pulse Ox 09/14/20 11:45 98.2 F 75 14 107/73 96 09/14/20 07:31 98.1 F 93 19 119/79 97 09/14/20 04:45 98.6 F 82 18 127/85 Weight Weight 169 lb 12.8 oz Physical Exam: The patient was seen and examined on the day of discharge. Patient is doing well. He is quite anxious to go home. It appears that LifeVest option is discussed by military logistics specialist. Due to his lack of insurance that may not be feasible at this time. However he is encouraged to follow-up with him in 2 to 3 weeks time in the clinic with Dr. Oshea. Meanwhile he is prescribed appropriate CHF cardiac medications. Plan - Discharge Medications Prescriptions: Spironolactone [Aldactone] 25 mg PO BID-WM 30 Days #60 tab Aspirin Chewable [Aspirin Chewable Tablet] 81 mg PO DAILY 30 Days #30 tab Potassium Chloride [Klor-Con 10] 10 meq PO QAM-WM 30 Days #30 tab Furosemide [Lasix] 20 mg PO 0900,1400 30 Days #60 tab Clopidogrel Bisulfate [Plavix] 75 mg PO DAILY 30 Days #30 tab Levothyroxine Sodium [Synthroid] 50 mcg PO 0600 30 Days #30 tab Metoprolol Succinate [Toprol XL] 25 mg PO DAILY 30 Days #30 tab Home Medications: Medication Instructions Recorded Confirmed Type Bronson Cit/D3/K/Mag Ox/Stron/Bor 1 each PO DAILY 09/08/20 09/08/20 History [Prosteon] Aspirin Chewable [Aspirin Chewable 81 mg PO DAILY 30 Days #30 tab 09/14/20 Rx Tablet] Clopidogrel Bisulfate [Plavix] 75 mg PO DAILY 30 Days #30 tab 09/14/20 Rx Furosemide [Lasix] 20 mg PO 0900,1400 30 Days #60 tab 09/14/20 Rx Levothyroxine Sodium [Synthroid] 50 mcg PO 0600 30 Days #30 tab 09/14/20 Rx Metoprolol Succinate [Toprol XL] 25 mg PO DAILY 30 Days #30 tab 09/14/20 Rx Potassium Chloride [Klor-Con 10] 10 meq PO QAM-WM 30 Days #30 tab 09/14/20 Rx Spironolactone [Aldactone] 25 mg PO BID-WM 30 Days #60 tab 09/14/20 Rx Allergies: lisinopril Allergy (Severe, Verified 12/09/20 00:06) Anaphylaxis - Discharge Instructions Discharge Instructions:: PCP in 1 week. please check with your primary care physician to draw basic metabolic panel when you visited him as you are on diuretics. Follow-up with Dr. Oshea in 2 weeks. Activity:: Activity as Tolerated Nourishment:: Heart Healthy Diet - Follow up Plan Referrals: Cardiac Rehab - [place] [Outside] - 7 Days (Your doctor has ordered outpatient cardiac rehab for you to begin within 1-2 weeks after you go home from the hospital. The location nearest to you is the [facility]. The front office in [place] will call you in 3-5 days to get you scheduled for your evaluation. If you do not receive a call, please reach out to them at [phone] and request an appointment. Should you have any trouble or need assistance, please call the cardiac rehab main line in [place] at [phone]) PROVIDER,NO PCP [Primary Care Provider] - 7 Days (Please call to schedule a follow up appointment in 1 week.) Lamine Oshea MD [Active] - 14 Days (Please call to schedule a follow up in 2 weeks.) Disposition: HOME Quality - Care Measures CORE MEASURES:: N/A
[2020-09-15] MEDS ORDERED: Potassium Chloride 10 MEQ TAB PO SCH (08:00)
[2020-09-15] MEDS ORDERED: Furosemide 20 MG TAB PO SCH (09:00)
--- NOTE | 2020-09-18 10:38 | EKG ---
Test Reason : Blood Pressure : / mmHG Vent. Rate : 107 BPM Atrial Rate : 107 BPM P-R Int : 148 ms QRS Dur : 092 ms QT Int : 382 ms P-R-T Axes : 034 -47 178 degrees QTc Int : 509 ms Sinus tachycardia Left atrial enlargement Left axis deviation Left ventricular hypertrophy Abnormal ECG Confirmed by JJ HEARD, KAUSHIK Mauricio ([id number]), web editor MARLEY DELGADO ([id number]) on 09/18/2020 10:38:09 AM Referred By: Confirmed By:KAUSHIK GARDNER MD
--- NOTE | 2020-11-04 14:57 | CCLSPC ---
This is an addition to the report in [facility]. Mr. Fuentes was brought to the cardiac catheterization lab in the fasting state. PROCEDURE: Left heart catheterization. INDICATION: Severe congestive heart failure. PROCEDURE IN DETAIL: The patient was prepped and draped in usual fashion. He did not have easily palpable pulses in either femoral artery. On the ultrasound, the vessel looked adequate. Therefore, using a micropuncture kit, the access was obtained. Following this, a J-wire was used to negotiate into the aorta, although there was clearly some disease in the vessel. A 5-Chinese sheath was then placed. I had to use a Wholey wire to get up the iliac at that point. Coronary angiogram was done with Sonia right 4 catheter and Sonia left 4 catheter. Left ventriculogram was done with an angled pigtail. The patient did complain of some discomfort in his right groin. Therefore, angiogram was done in the aorta. It looked like the patient did not have good flow down the external iliac with the catheter in place. The wire was replaced and the angiogram was done showing a severe stenosis just after the external iliac. I asked Dr. Clement to come to see the patient. We elected to intervene in this area with stenting as he will document. Heparin 5000 units was given. The results of the heart catheterization were as follows: 1. Left main: No obstructive stenosis. 2. LAD: Mild nonobstructive qoa-xluj-gejfbyse plaque. 3. Circumflex: Approximately 70% in the mid circumflex. 4. Right coronary: 60% to 70% lesions in the mid right coronary, 40% more distal. 5. Ejection fraction 15%. 6. Severe iliac disease as outlined above. Job ID: [id number]
== END 2020-09-14 13:50 | disposition home or self-care (01) | DRG 252 ==
LOC: ERS 19:46 → 2NO 21:37
PROVIDERS: ADMIT Internal Medicine; ATTEND Internal Medicine
PROC: 4A023N7 Measurement of Cardiac Sampling and Pressure, Left Heart, Percutaneous Approach (ICD-10-PCS; principal; 2020-09-13)
PROC: B2111ZZ Fluoroscopy of Multiple Coronary Arteries using Low Osmolar Contrast (ICD-10-PCS; 2020-09-13)
PROC: B2151ZZ Fluoroscopy of Left Heart using Low Osmolar Contrast (ICD-10-PCS; 2020-09-13)
PROC: B3101ZZ Fluoroscopy of Thoracic Aorta using Low Osmolar Contrast (ICD-10-PCS; 2020-09-13)
PROC: 047E3DZ Dilation of Right Internal Iliac Artery with Intraluminal Device, Percutaneous Approach (ICD-10-PCS; 2020-09-13)
DX: I11.0 Hypertensive heart disease with heart failure (principal); I21.A1 Myocardial infarction type 2; I47.2 Ventricular tachycardia; I42.6 Alcoholic cardiomyopathy; I50.23 Acute on chronic systolic (congestive) heart failure; Z20.828 Contact with and (suspected) exposure to other viral communicable diseases; I43 Cardiomyopathy in diseases classified elsewhere; E78.5 Hyperlipidemia, unspecified; F10.10 Alcohol abuse, uncomplicated; F17.210 Nicotine dependence, cigarettes, uncomplicated; E03.9 Hypothyroidism, unspecified; I25.10 Atherosclerotic heart disease of native coronary artery without angina pectoris; R23.4 Changes in skin texture; I70.201 Unspecified atherosclerosis of native arteries of extremities, right leg; E83.42 Hypomagnesemia; E87.6 Hypokalemia; Z88.8 Allergy status to other drugs, medicaments and biological substances; Z91.14 Patient's other noncompliance with medication regimen; Z79.899 Other long term (current) drug therapy
CPT/HCPCS: 36415; 37221; 71045; 76942; 76999; 80048; 80053; 80061; 82550; 82553; 83036; 83735; 83880; 84443; 84484; 85025; 85347; 87635; 93005; 93306; 93458; 93798; 94760; 96372; 97139; 99152; 99153; C1725; J1644; J1650; J1940; J2250; J2720; J3010; J3475; J7050; Q9967; U0003